=== PATIENT | male | born 1955 | race Caucasian/White ===

== ENCOUNTER 2020-04-19 00:24 | Emergency (ER) | payer MEDICARE ==
[~2020-04-19] VITALS: Ht 182.9 cm; Wt 93.0 kg
[2020-04-19 01:48] LABS: Basophils # (auto) 0 10 ^3/uL (0-0.2); Basophils % (auto) 0.5 % (0.0-2.0); Eosinophils # (auto) 0.2 10 ^3/uL (0-0.8); Eosinophils % (auto) 2.5 % (0.0-7.0); Hematocrit 46.2 % (41.0-53.0); Hemoglobin 16.4 g/dL (13.5-17.5); Lymphocytes # (auto) 1.6 10 ^3/uL (0.4-5.4); Lymphocytes % (auto) 18.2 % (10.0-50.0); Mean Corpuscular Hemoglobin 32.5 pg (28.0-32.0); Mean Corpuscular Hgb Conc. 35.4 g/dL (32.0-36.0); Mean Corpuscular Volume 91.6 fL (80.0-100.0); Monocytes # (auto) 0.6 10 ^3/uL (0-1.3); Monocytes % (auto) 7.1 % (0.0-12.0); Neutrophils # (auto) 6.3 10 ^3/uL (1.6-8.6); Neutrophils % (auto) 71.7 % (37.0-80.0); Red Blood Cells 5.05 10^6/uL (4.5-5.90); Red Cell Distribution Width 13.3 % (11.8-14.3); White Blood Cell 8.8 10^3/uL (4.4-10.8)
[2020-04-19 02:05] LABS: Alanine Aminotransferase 78 U/L (16-61); Albumin 3.6 g/dL (3.4-5.0); Anion Gap 9 (5-15); Aspartate Aminotransferase 150 U/L (15-37); BUN/Creatinine Ratio 14.7; Blood Urea Nitrogen 16 mg/dL (7-18); Calcium 9.1 mg/dL (8.5-10.1); Carbon Dioxide 26 mmol/L (21-32); Chloride 105 mmol/L (98-107); GFR African American 87 mL/min; GFR Non-African American 72 mL/min; Glucose 140 mg/dL (74-106); Potassium 3.8 mmol/L (3.5-5.1); Sodium 140 mmol/L (136-145)
[2020-04-19 02:10] LABS: Alkaline Phosphatase 78 U/L (45-117); Bilirubin, Total 0.9 mg/dL (0.2-1.0); Total Protein 7.4 g/dL (6.4-8.2)
[2020-04-19 02:15] LABS: INR 0.97 (0.9-1.15); Partial Thromboplastin Time 23.6 sec (23.0-31.2)
[2020-04-19] MEDS ORDERED: ASPirin 81 mg TAB PO ONE (07:30)
[2020-04-19 08:16] VITALS: BP 157/87
== END 2020-04-19 10:36 | disposition home or self-care (01) ==
LOC: ER 00:24
DX: R07.89 Other chest pain (principal); R94.5 Abnormal results of liver function studies
CPT/HCPCS: 36415; 71046; 80053; 83880; 84484; 85025; 85610; 85730; 93005

== ENCOUNTER → 2022-01-02 | Outpatient (CLI) | payer MEDICARE ==
[2022-01-02 09:15] LABS: Albumin 3.6 g/dL (3.4-5.0); Potassium 4.4 mmol/L (3.5-5.1)
[2022-01-02 09:18] LABS: BUN/Creatinine Ratio 13.7; Bilirubin, Total 1.1 mg/dL (0.2-1.0); Total Protein 7.2 g/dL (6.4-8.2)
== END | disposition home or self-care (01) ==
LOC: LAB 07:58
PROVIDERS: ATTEND Internal Medicine
DX: Z12.5 Encounter for screening for malignant neoplasm of prostate (principal); M13.80 Other specified arthritis, unspecified site; R73.01 Impaired fasting glucose; R76.0 Raised antibody titer; I10 Essential (primary) hypertension; Z86.010 Personal history of colon polyps
CPT/HCPCS: 36415; 80053; 80061; 82274; 83036; 84153; 84443; 86038